=== PATIENT | female | born 1985 | race Caucasian/White ===

== ENCOUNTER 2023-07-05 09:28 | Emergency (ER) | payer OTHER, SELFPAY ==
[2023-07-05 09:36] VITALS: BP 141/106
--- NOTE | 2023-07-05 10:16 | ED.GENMED ---
History of Present Illness
General
Chief Complaint: Anal/Rectal Problem
Source: patient
Exam Limitations: none
Time Seen by Provider: 07/05/23 09:57
Travel History
Have you had any contact with someone who has COVID-19?: No
Do you have any symptoms of coronavirus? Fever > 100 degrees, chills, cough, shortness of breath, sore throat, loss of taste or smell, muscle aches, or headache?: No
History of Present Illness
History of Present Illness:
37-year-old otherwise healthy female presents complaining of rectal pain over the past 2 days. She states she had an episode of diarrhea and since then she has had pain to the right. She feels swelling down there. She [place]. She notes a mucousy
drainage. No other complaints at this time
Past History
Past History
ED Past Medical History: Other (Sinusitis)
Social History
Tobacco: Smoker
Alcohol: None
Drug: None
Personal:
Living: with family
Employment: Employed
Family History
Family History: Other (Noncontributory)
Phy Exam
Physical Exam
Physical Exam:
General: Well-appearing female no acute respiratory distress
HEENT: Normocephalic atraumatic
Heart: Regular rate and rhythm no murmurs
Lungs: Clear to auscultation bilaterally
Abdomen is soft nontender nondistended no guarding or rebound
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 There is a large thrombosed external hemorrhoid noted on the left half of the anus. No current drainage. This is tender to the touch.
Extremities: No cyanosis
Course
Orders/Labs/Results
Orders:
Orders
07/05/23 10:14
Ketorolac [Toradol] 30 mg IV NOW STA
Lorazepam [Ativan] 0.5 mg IV NOW STA
Vital Signs
Initial and Last Documented VS:
Initial Vital Signs
Temp Pulse Resp BP Pulse Ox
98.8 F 115 16 141/106 98
07/05/23 09:36 07/05/23 09:36 07/05/23 09:36 07/05/23 09:36 07/05/23 09:36
Last Documented Vital Signs
Temp Pulse Resp BP Pulse Ox
98.8 F 115 16 141/106 98
07/05/23 09:36 07/05/23 09:36 07/05/23 09:36 07/05/23 09:36 07/05/23 09:36
MDM/Problems Addressed
Differential Diagnosis Includes:
Rectal pain. Consider hemorrhoid versus thrombosed hemorrhoid versus abscess. Exam consistent with thrombosed external hemorrhoid. Discussed with patient regarding excision. She is agreeable.
*Critical Care Note
Total Time (30-74mins, 75-104mins- exclusive of procedures): Not Applicable
Update Note
Update Note:
Thrombosed hemorrhoid was excised and a large amount of clot was expressed. This was then irrigated with saline and gauze was placed in the area to catch any further drainage. Wound care instructions were given. She has an appoint with colorectal
and follow-up in 3 days
ED Attending Note
-
Portions of this chart may have been created with voice recognition software.� Occasional wrong word or��sound alike� substitutions may have occurred due to the inherent limitations of voice recognition software.
Discharge Plan
Departure
Patient Disposition: Home (Routine Discharge)
Date of Disposition: 07/05/23
Time of Disposition: 10:56
Patient with high blood pressure during this ER visit?: No
Discharge Problem:
External hemorrhoid, thrombosed
Instructions: How to Do a Sitz Bath
Prescriptions:
No Action
acetaminophen [Tylenol Extra Strength] 500 MG tablet
500 mg PO Q4HPRN PRN (Reason: headache)
amoxicillin-pot clavulanate 1 TABLET tablet
1 tab PO Q12 Qty: 20 0RF
prednisone 20 MG tablet
40 mg PO DAILY Qty: 10 0RF
Referrals:
Shelton Key MD [Family Provider] -
Activity Restrictions/Additional Instructions:
Use warm compresses or soaks to the area. Use Tylenol or ibuprofen for pain. Keep your appointment with colorectal as planned. Return if worse otherwise
Interventions
Interventions:
*Risk Screen - Suicide Last Done: 07/05/23 09:47
*General Assessment Last Done: 07/05/23 09:48
*Neglect/Abuse Screening Last Done: 07/05/23 09:47
ED- Fall Risk Assessment Last Done: 07/05/23 09:49
*ED COVID-19 Vaccine History Last Done: 07/05/23 09:36
ET-Ugfkyk-Ilbhulkyfk Assessment Last Done: 07/05/23 09:55
ED-Skin Assessment Last Done: 07/05/23 09:55
[2023-07-05] MEDS: ATIVAN 0.5 MG IV (10:26)
[2023-07-05] MEDS: TORADOL 30 MG IV (10:35)
[2023-07-05 11:15] VITALS: BP 132/74
== END 2023-07-05 11:31 | disposition home or self-care (01) ==
LOC: EMR 09:28
PROVIDERS: EMERGENCY PHYSICIAN Emergency Medicine; FAMILY PHYSICIAN Family Medicine
DX: K64.4 Residual hemorrhoidal skin tags (principal); K64.5 Perianal venous thrombosis; F17.200 Nicotine dependence, unspecified, uncomplicated
CPT/HCPCS: 99284; 96374; 96375

== ENCOUNTER → 2023-12-08 09:03 | Outpatient (REF) | payer OTHER, SELFPAY | LOC: HWRAD 09:03 | PROVIDERS: ATTENDING PHYSICIAN Obstetrics & Gynecology; FAMILY PHYSICIAN Family Medicine; REFERRING PHYSICIAN Specialist | DX: R10.32 Left lower quadrant pain (principal); Q61.3 Polycystic kidney, unspecified | CPT/HCPCS: 76775; 76830; 76856 ==

== ENCOUNTER → 2024-05-23 06:48 | Outpatient (REF) | payer OTHER, SELFPAY | LOC: HWRAD 06:48 | PROVIDERS: ATTENDING PHYSICIAN Student in an Organized Health Care Education/Training Program | DX: M79.605 Pain in left leg (principal) | CPT/HCPCS: 93971 ==

== ENCOUNTER → 2024-05-24 12:38 | Outpatient (REF) | payer OTHER, SELFPAY | LOC: HWRAD 12:38 | PROVIDERS: ATTENDING PHYSICIAN Student in an Organized Health Care Education/Training Program | DX: M79.605 Pain in left leg (principal) | CPT/HCPCS: 73564; 73590 ==

== ENCOUNTER → 2024-06-28 08:47 | Outpatient (REF) | payer OTHER, SELFPAY | LOC: HWWDC 08:47 | PROVIDERS: ATTENDING PHYSICIAN Obstetrics & Gynecology; FAMILY PHYSICIAN Family Medicine | DX: Z12.31 Encounter for screening mammogram for malignant neoplasm of breast (principal) | CPT/HCPCS: 77063; 77067 ==

== ENCOUNTER → 2024-07-19 09:45 | Outpatient (REF) | payer OTHER, SELFPAY | LOC: HWRAD 09:45 | PROVIDERS: ATTENDING PHYSICIAN Obstetrics & Gynecology; FAMILY PHYSICIAN Family Medicine | DX: R10.32 Left lower quadrant pain (principal) | CPT/HCPCS: 76830; 76856 ==

== ENCOUNTER → 2024-07-26 10:34 | Outpatient (REF) | payer OTHER, SELFPAY | LOC: RAD 10:34 | PROVIDERS: ATTENDING PHYSICIAN Family Medicine | DX: M79.605 Pain in left leg (principal); M79.89 Other specified soft tissue disorders | CPT/HCPCS: 93922 ==

== ENCOUNTER → 2024-10-10 14:02 | Outpatient (REF) | payer OTHER, SELFPAY | LOC: RAD 14:02 | PROVIDERS: ATTENDING PHYSICIAN Surgery Vascular Surgery; FAMILY PHYSICIAN Family Medicine | DX: I65.23 Occlusion and stenosis of bilateral carotid arteries (principal); I87.2 Venous insufficiency (chronic) (peripheral) | CPT/HCPCS: 75635; 93880; 93971; Q9967 ==

== ENCOUNTER → 2024-11-29 09:58 | Outpatient (REF) | payer OTHER, SELFPAY | LOC: HWRAD 09:58 | PROVIDERS: ATTENDING PHYSICIAN Obstetrics & Gynecology Gynecology; FAMILY PHYSICIAN Family Medicine | DX: N83.292 Other ovarian cyst, left side (principal) | CPT/HCPCS: 76830; 76856 ==